=== PATIENT | male | born 1960 | race Asian ===

== ENCOUNTER 2024-01-03 07:00 | Outpatient (CLI) | payer OTHER ==
--- NOTE | 2024-01-04 12:53 | XRAY Report ---
PROCEDURE: Wrist 3+V RT INDICATIONS: SPRAIN OF RIGHT WRIST TECHNIQUE: 3 views of the wrist were acquired. COMPARISON: None. FINDINGS: Bones: Possible nondisplaced fracture of the distal radius. Articular extension cannot be assessed. Remaining osseous structures appear to be intact. Soft tissues: Nonspecific soft tissue edema. IMPRESSION: Suspected nondisplaced fracture of the distal radius. Recommend correlation for point tenderness. CT or MRI could be performed for further characterization if indicated clinically. Reviewed by: Danyel Wiseman MD on 01/04/2024 12:51 PM PDT Approved by: Danyel Wiseman MD on 01/04/2024 12:51 PM PDT Station ID: [id number]
== END 2024-01-03 23:59 | disposition home or self-care (01) ==
LOC: DI.S 07:00
PROVIDERS: ATTEND Emergency Medicine
DX: S63.521A Sprain of radiocarpal joint of right wrist, initial encounter (principal)

== ENCOUNTER 2024-01-12 08:59 | Outpatient (CLI) | payer OTHER ==
--- NOTE | 2024-01-12 16:18 | XRAY Report ---
PROCEDURE: Wrist 3+V RT INDICATIONS: TORUS FRACTURE OF LOWER END OF RIGHT RADIUS TECHNIQUE: 3 views of the wrist were acquired. COMPARISON: Right wrist radiograph on January 03, 2024. FINDINGS: Bones: Minimally displaced fracture of the distal radius with no intra-articular extension appears m ore conspicuous compared to the prior exam. Stable alignment with slight volar angulation of the dist al fracture fragment. No suspicious bony lesions. Soft tissues: No suspicious soft tissue calcifications or masses. IMPRESSION: Minimally displaced extra-articular fracture of the distal radius appears more conspicuous compared t o the prior exam. Stable alignment with slight volar angulation of the distal fracture fragment. Reviewed by: Kerline Sharma MD on 01/12/2024 4:17 PM PDT Approved by: Kerline Sharma MD on 01/12/2024 4:17 PM PDT Station ID: [id number]
== END 2024-01-12 09:00 | disposition home or self-care (01) ==
LOC: DI.S 08:59
PROVIDERS: ATTEND Physician Assistant Surgical
DX: S52.521D Torus fracture of lower end of right radius, subsequent encounter for fracture with routine healing (principal)

== ENCOUNTER 2024-02-29 14:14 | Outpatient (CLI) | payer OTHER ==
--- NOTE | 2024-02-29 16:40 | XRAY Report ---
PROCEDURE: Wrist 3+V RT INDICATIONS: FRACTURE OF RT RADIUS TECHNIQUE: 3 views of the wrist were acquired. COMPARISON: X-ray wrist 01/12/2024 FINDINGS: Bones: Stable alignment and slightly less prominent appearance of distal radial fracture lucency. Soft tissues: No suspicious soft tissue calcifications or masses. IMPRESSION: Stable alignment of distal radial fracture. Reviewed by: Shirley Price MD on 02/29/2024 4:39 PM PDT Approved by: Shirley Price MD on 02/29/2024 4:39 PM PDT Station ID: [id number]
== END 2024-02-29 14:15 | disposition home or self-care (01) ==
LOC: DI.S 14:14
PROVIDERS: ATTEND Physician Assistant Surgical
DX: S52.531D Colles' fracture of right radius, subsequent encounter for closed fracture with routine healing (principal)